=== PATIENT | female | born 2005 | race African-American/Black ===

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

== ENCOUNTER 2023-09-03 05:39 | Day surgery (SDC) | payer BC ==
[2023-09-03 06:13] VITALS: BMI 29.2
[2023-09-03] MEDS ORDERED: hydrALAZINE 20 MG/ML VIAL SLOW IVP PRN (06:44)
[2023-09-03 07:06] LABS: Bilirubin Neg (Negative); Blood, Urine Negative (Negative); Clarity Slightly Cloudy (Clear); Glucose, Urine (Dipstick) Normal (Negative); Ketone, Urine Negative (Negative); Leukocyte 25 (Negative); Nitrite Negative (Negative); Protein, Urine (Dipstick) 15 mg/dl (Neg-Trace); Specific Gravity, Urine 1.015 (1.005-1.030); Urobilinogen Normal mg/dL (Less than 2)
[2023-09-03 07:13] LABS: Bacteria/HPF None Seen HPF (None Seen); CAUTI Indications for Culture Pregnancy; RBC/HPF None Seen HPF (0-3); Squamous Epithelial 0-3 HPF (0-3); WBC/HPF 0-3 HPF (0-3)
[2023-09-03 07:14] LABS: Urine Culture Reflex Yes Yes
== END 2023-09-03 08:16 | disposition home or self-care (01) ==
LOC: CSHLD/OP 05:39
PROVIDERS: ATTEND Family Medicine
DX: O47.03 False labor before 37 completed weeks of gestation, third trimester (principal); Z3A.35 35 weeks gestation of pregnancy; Z79.82 Long term (current) use of aspirin; Z79.899 Other long term (current) drug therapy
CPT/HCPCS: 81001; 87086; 99282

== ENCOUNTER 2023-09-17 21:22 | Day surgery (SDC) | payer BC ==
[2023-09-17 22:04] VITALS: BMI 28.9
[2023-09-17 22:33] LABS: Fetal Membranes Rupture No Membranes Rupture (No Rupture)
== END 2023-09-17 22:57 | disposition home or self-care (01) ==
LOC: CSHLD/OP 21:22
PROVIDERS: ATTEND Family Medicine
DX: O99.891 Other specified diseases and conditions complicating pregnancy (principal); N89.8 Other specified noninflammatory disorders of vagina; Z3A.37 37 weeks gestation of pregnancy; Z79.899 Other long term (current) drug therapy
CPT/HCPCS: 84112